=== PATIENT | female | born 1990 | race Caucasian/White ===

== ENCOUNTER 2025-06-17 17:54 | Emergency (ER) | payer OTHER, SELFPAY ==
[2025-06-17 18:04] VITALS: BP 147/86; PULSE 70; RESP 16; TEMP 36.5; O2SAT 100
--- NOTE | 2025-06-17 18:15 | ECG_ITS ---
Test Date: 2025-06-17 18:26:28 Measurements Intervals [place] Rate: 56 P: 18 NV: 226 QRS: 39 QRSD: 98 T: 13 QT: 426 QTc: 414 Interpretive Statements SINUS BRADYCARDIA WITH FIRST DEGREE AV BLOCK BORDERLINE T WAVE ABNORMALITY- ANTERIOR LEADS BORDERLINE ECG No previous ECG available for comparison Electronically Signed On 06-18-2025 05:18:23 CDT by Daniel Collins D.O.
--- NOTE | 2025-06-17 18:18 | ED_ITS ---
HPI - General Adult General Chief complaint: Dizziness Stated complaint: DIZZY Source: patient Mode of arrival: ambulatory Limitations: no limitations History of Present Illness HPI narrative: Patient presents for evaluation of feeling off balance. She indicates yesterday she woke from sleep and experienced a sensation that the room was spinning when she leaned over in bed. Symptoms dissipated when she remained in one position. She had several other similar episodes that occurred that day although only one was as severe as the initial episode. All of these episodes occurred with head movements or position changes. Today she has had a fairly constant mild sensation of being off balance. She denies any palpitations, chest pain, fever, headache, change in mentation, problems swallowing, change in stren gth or range of motion of the extremities, otalgia, hearing loss, or urinary symptoms. she does report increase in stress in her life but that has not been an acute change, noting her stress levels being fairly constant over the last 1.5 years. She denies any drug use and does not smoke or vape. She consumes ETOH socially. She states her symptoms today are mild but just enough to be annoying. Related Data Home Medications ?Medication ?Instructions ?Recorded ?Confirmed ?Last Taken ?Type norethindrone 1 mg-ethinyl 1 tablet PO DAILY 06/17/25 06/17/25 Unknown History estradiol 20 mcg (21)-iron 75 mg (7) tablet (Aurovela Fe 1-20 (28)) Allergies Allergy/AdvReac Type Severity Reaction Status Date / Time No Known Allergies Allergy Verified 06/17/25 18:00 Review of Systems Review of Systems: CONSTITUTIONAL: Denies fever, chills, or sweats. EYES: Denies visual changes, redness, or discharge. ENT: Denies rhinorrhea, congestion, sore throat, or otalgia. CARDIOVASCULAR: Denies chest pain, palpitations, or edema. RESPIRATORY: Denies cough or dyspnea. GASTROINTESTINAL: Denies abdominal pain, nausea, vomiting, or diarrhea. GENITOURINARY: Denies dysuria or hematuria. SKIN: Denies rash or itching. MUSCULOSKELETAL: Denies back pain, joint pain, or myalgia. NEUROLOGIC: Reports episodes of the room spinning yesterday. Reports sensation of feeling off balance today. Denies headache, numbness, or weakness. PSYCHIATRIC: Denies anxiety or depression. [facility]LY [facility] Past Medical History Medical History No pertinent past medical history Surgical History Surgical History No pertinent past surgical history Family History Family History Father Diabetes mellitus Hypertension Social History Social History Smoking status: Never smoker Alcohol intake: current Alcohol use details: Social Substance use: never Living arrangements: with family Gender identity (if verbalized by the patient): Female Sexual Orientation (if Verbalized by the Patient): Straight or Heterosexual Spiritual care concerns: No Exam Narrative: GENERAL: Well-appearing, well-nourished, and in no acute distress. HEAD: Normocephalic, atraumatic. EYES: PERRLA and EOMI. ENT: Nares clear, no rhinorrhea or epistaxis. Mucous membranes moist. Oropharynx without tonsillar hypertrophy exudate or other lesions. Bilateral TMs pearly rausch nonbulging NECK: Supple. No adenopathy or masses. No carotid bruits or JVD CHEST: Clear to auscultation. No respiratory distress. No wheezes rales or rhonchi HEART: Regular rate and rhythm. No murmur heard. Normal peripheral pulses. ABDOMEN: Soft, nontender, nondistended, normal active bowel sounds. EXTREMITIES: Normal range of motion. No edema. SKIN: Warm, dry, no rash. NEURO: No focal deficits. Alert and oriented x3. normal [id number] exam. Able to perform rapid alternating movements without difficulty. Face is symmetric. PSYCH: Normal mood and affect. Course Course Emergency Course: This is a 35-year-old female who presented for evaluation of vertigo and feeling off balance. In terms of her for vertigo, will treat her with meclizine. In terms of feeling off balance, her symptoms are mild. Her blood sugar here is normal. Her urine has no evidence of infection. She was not orthostatic. Her EKG showed sinus bradycardia with first-degree AV block. I recommended she follow up with primary care provider for further evaluation and treatment. She does not appear to have an emergent medical need necessitating ER workup tonight. I did recommend she go to the emergency department in the event that she has any neurological changes. Patient was in agreement with plan of care. Level of Care: Express Care Visit Vital Signs Vital signs: Vital Signs Temperature 36.5 C 06/17/25 18:04 Pulse Rate 70 06/17/25 18:04 Respiratory Rate 16 06/17/25 18:04 Blood Pressure 147/86 H 06/17/25 18:04 Pulse Oximetry 100 06/17/25 18:04 Temperature 36.5 C 06/17/25 18:04 Pulse Rate 58 L 06/17/25 18:34 Respiratory Rate 16 06/17/25 18:04 Blood Pressure 155/92 H 06/17/25 18:34 Pulse Oximetry 100 06/17/25 18:04 Medical Decision Making Vital Signs Vital Signs: Vital Signs Temperature 36.5 C 06/17/25 18:04 Pulse Rate 70 06/17/25 18:04 Respiratory Rate 16 06/17/25 18:04 Blood Pressure 147/86 H 06/17/25 18:04 Pulse Oximetry 100 06/17/25 18:04 Temperature 36.5 C 06/17/25 18:04 Pulse Rate 58 L 06/17/25 18:34 Respiratory Rate 16 06/17/25 18:04 Blood Pressure 155/92 H 06/17/25 18:34 Pulse Oximetry 100 06/17/25 18:04 Lab Data Labs: Lab Results 06/17/25 06/17/25 Range/Units 18:27 18:36 POC Capillary Glucose 75 (65-105) mg/dl POC Urine Color Light/pale Yellow POC Urine Clarity Clear Clear POC Urine pH 7.0 7.0 POC Ur Specif [place] 1.015 1.015 POC Urine Protein Negative Negative (Negative) POC Ur Glucose (UA) Negative Negative (Negative) POC Urine Ketones Negative Negative (Negative) POC Urine Blood Negative Negative (Negative) POC Urine Nitrite Negative Negative (Negative) POC Urine Bilirubin Negative Negative (Negative) POC Urine Urobilinogen 0.2 0.2 POC U Leukocyte Esteras Negative Negative (Negative) POC Urine HCG, Qual Negative Negative (Negative) ECG Data EKG #1: Interpretation: Completed at 6:26 PM showed sinus bradycardia, rate 56, first-degree AV block, otherwise normal EKG. Discharge Plan Discharge Clinical Impression: Vertigo, Balance problem Patient Disposition: Home Condition: Stable Instructions: Antibiotic Form, Vertigo (DC) Additional Instructions: PLEASE STAY WELL HYDRATED YOU MAY TAKE MECLIZINE FOR YOUR SYMPTOMS PLEASE FOLLOW-UP WITH PRIMARY CARE PROVIDER TOMORROW YOUR EKG TODAY SHOWED SINUS BRADYCARDIA WITH 1ST DEGREE AV BLOCK. PLEASE SPEAK WITH YOUR PRIMARY CARE PROVIDER REGARDING WHETHER ADDITIONAL TESTING IS NEEDED. IF YOU HAVE WORSENING SYMPTOMS, PLEASE GO TO THE EMERGENCY DEPARTMENT. Patient Language: [place] Prescriptions: New meclizine 25 mg tablet 25 mg PO QID PRN (Reason: dizziness) Qty: 20 0RF No Action norethindrone-e.estradiol-iron [Aurovela Fe 1-20 (28)] 1 mg-20 mcg (21)/75 mg (7) tablet 1 tablet PO DAILY Follow-up/Referrals: Tera Miramontes MD [Physician, Family Practice] Time of Disposition: 18:46
[2025-06-17 18:29] LABS: BEDSIDEPREGUCG Negative (Negative)
[2025-06-17 18:30] LABS: EDUAAPPEAR Clear; EDUABILI Negative (Negative); EDUABLOOD Negative (Negative); EDUACOLOR1 Light/Pale; EDUAGLUCOSE Negative (Negative); EDUAKETONE Negative (Negative); EDUALEUKO Negative (Negative); EDUANITRATE Negative (Negative); EDUAPH 7.0; EDUAPROTEIN Negative (Negative); EDUASPGRAVITY 1.015; EDUAUROBILI 0.2
[2025-06-17 18:34] VITALS: BP 145/87; BP 147/90; BP 155/92; PULSE 58; PULSE 62; PULSE 67
[2025-06-17 18:38] LABS: BEDSIDEPREGUCG Negative (Negative); EDUAAPPEAR Clear; EDUABILI Negative (Negative); EDUABLOOD Negative (Negative); EDUACOLOR1 Yellow; EDUAGLUCOSE Negative (Negative); EDUAKETONE Negative (Negative); EDUALEUKO Negative (Negative); EDUANITRATE Negative (Negative); EDUAPH 7.0; EDUAPROTEIN Negative (Negative); EDUASPGRAVITY 1.015; EDUAUROBILI 0.2
== END 2025-06-17 18:48 | disposition home or self-care (01) ==
PROVIDERS: Emergency Provider Nurse Practitioner
DX: R42 Dizziness and giddiness (principal); R26.89 Other abnormalities of gait and mobility
CPT/HCPCS: 81003; 81025; 82948; 93005; 99203; G0463